=== PATIENT | female | born 1985 | race Caucasian/White ===

== ENCOUNTER 2018-05-11 19:55 | Emergency (ER) | payer MEDICAID ==
[2018-05-11 20:38] LABS: ADD UMIC YES; UR ASCORBIC ACID NEGATIVE (NEGATIVE); UR BACTERIA FEW /HPF (NONE SEEN); UR BILIRUBIN (Dip) NEGATIVE (NEGATIVE); UR BLOOD (Dip) 2+ mg/dL (NEGATIVE); UR CLARITY SLIGHTLY CLOUDY (CLEAR); UR COLOR YELLOW (YELLOW); UR GLUCOSE (Dip) NEGATIVE (NEGATIVE); UR KETONES (Dip) NEGATIVE (NEGATIVE); UR LEUKOCYTE ESTERASE (Dip) TRACE Leu/ul (NEGATIVE); UR NITRITE (Dip) NEGATIVE (NEGATIVE); UR RBC 5 /HPF (0-5); UR SPECIFIC GRAVITY (Dip) 1.019 (1.003-1.030); UR SQUAMOUS EPITHELIAL CELL FEW /HPF (FEW); UR TOTAL PROTEIN (Dip) NEGATIVE (NEGATIVE); UR UROBILINOGEN (Dip) NEGATIVE (NEGATIVE); UR WBC 3 /HPF (0-5)
[2018-05-11] MEDS: PHENAZOPYRIDINE 100 MG TAB PO (20:45)
[2018-05-11] MEDS: CEPHALEXIN 500 MG CAP PO (20:46)
== END 2018-05-11 20:59 | disposition home or self-care (01) ==
LOC: FTE 20:59
DX: N30.00 Acute cystitis without hematuria (principal)
CPT/HCPCS: 81001; 81025; 99283

== ENCOUNTER 2018-09-29 11:49 | Emergency (ER) | payer MEDICAID | END 2018-09-29 13:00 | disposition home or self-care (01) | LOC: FTE 11:49 | DX: K12.0 Recurrent oral aphthae (principal) | CPT/HCPCS: 99283; Z7502 ==